=== PATIENT | male | born 1985 ===

== ENCOUNTER → 2017-12-26 | Outpatient (CLI) | payer OTHER | LOC: MHCPAIN 10:08 | DX: G89.29 Other chronic pain (principal); M47.27 Other spondylosis with radiculopathy, lumbosacral region; M53.3 Sacrococcygeal disorders, not elsewhere classified; F17.200 Nicotine dependence, unspecified, uncomplicated | CPT/HCPCS: G0463 ==

== ENCOUNTER → 2018-01-01 | Outpatient (CLI) | payer OTHER | LOC: MHCPAIN 15:43 | DX: M47.27 Other spondylosis with radiculopathy, lumbosacral region (principal); M51.26 Other intervertebral disc displacement, lumbar region | CPT/HCPCS: J1040; Q9967 ==

== ENCOUNTER → 2018-01-23 | Outpatient (CLI) | payer OTHER | LOC: MHCPAIN 10:05 | DX: G89.29 Other chronic pain (principal); M47.817 Spondylosis without myelopathy or radiculopathy, lumbosacral region; M54.16 Radiculopathy, lumbar region | CPT/HCPCS: G0463 ==

== ENCOUNTER → 2018-02-05 | Outpatient (CLI) | payer OTHER | LOC: MHCPAIN 14:50 | DX: M47.817 Spondylosis without myelopathy or radiculopathy, lumbosacral region (principal); M51.37 Other intervertebral disc degeneration, lumbosacral region | CPT/HCPCS: J1040; Q9967 ==

== ENCOUNTER → 2018-03-13 | Outpatient (CLI) | payer OTHER | LOC: MHCPAIN 10:02 | DX: G89.29 Other chronic pain (principal); M47.817 Spondylosis without myelopathy or radiculopathy, lumbosacral region; M54.18 Radiculopathy, sacral and sacrococcygeal region; M53.3 Sacrococcygeal disorders, not elsewhere classified | CPT/HCPCS: G0463 ==

== ENCOUNTER → 2018-04-02 | Outpatient (CLI) | payer OTHER | LOC: MHCPAIN 13:36 | DX: M47.817 Spondylosis without myelopathy or radiculopathy, lumbosacral region (principal); M54.5 Low back pain | CPT/HCPCS: J1040; J2250; J3010; Q9967 ==

== ENCOUNTER → 2018-05-29 | Outpatient (CLI) | payer OTHER | LOC: MHCPAIN 10:59 | DX: G89.29 Other chronic pain (principal); M47.817 Spondylosis without myelopathy or radiculopathy, lumbosacral region; M54.16 Radiculopathy, lumbar region; M53.3 Sacrococcygeal disorders, not elsewhere classified | CPT/HCPCS: G0463 ==

== ENCOUNTER → 2018-11-10 | Outpatient (CLI) | payer OTHER | LOC: MHCPAIN 10:46 | DX: G89.29 Other chronic pain (principal); M47.817 Spondylosis without myelopathy or radiculopathy, lumbosacral region; M54.16 Radiculopathy, lumbar region; M53.3 Sacrococcygeal disorders, not elsewhere classified | CPT/HCPCS: G0463 ==

== ENCOUNTER 2022-10-23 11:32 | Day surgery (SDC) | payer OTHER ==
[~2022-10-23] VITALS: Ht 167.6 cm; Wt 74.5 kg
[2022-10-23 12:03] VITALS: BP 130/84; PULSE 76; TEMP 97.6
[2022-10-23] MEDS ORDERED: ZYRTEC 10MG10 MG PO (12:09)
[2022-10-23] MEDS ORDERED: PROVENTIL0.09 MG/A1 IH (12:10)
[2022-10-23] MEDS ORDERED: NORCO 325 MG-51 TAB PO (14:12)
[2022-10-23 15:15] VITALS: BP 116/94; PULSE 73; TEMP 97.2
[2022-10-23 15:30] VITALS: BP 148/88; PULSE 71
[2022-10-23 15:45] VITALS: BP 132/81; PULSE 71
[2022-10-23 16:00] VITALS: BP 130/77; PULSE 74
--- NOTE | 2022-10-23 16:40 | NUR ---
1515 PT TO [facility] [place] [facility] FROM PACU S/P ROBOTIC LEFT INGUINAL HERNIA REPAIR. 3 TROCAR SITES CLOSED WITH BANDAIDS - CDI. WAS NAUSEOUS IN PACU, MEDICATED, CURRENTLY DENIES COMPLAINT. L&OX4. PLACED ON MONITOR, VSS ON RA RECEIVED REPORT AND ASSUMED CARE OF PT FROM [facility] NO FAMILY AVAILABLE. RIDE HOME, FRIEND ELDON CALLED, HAS ETA OF 30 MIN WHEN READY. 1525 PT MORE AWAKE, PROVIDED JUICE AND MUFFIN PER REQUEST - TOLERATING WELL. 1550 PT HAS REMAINED A&O, NAD, VSS ON RA, TOLERATING PO, IS WITHOUT SIGNIFICANT COMPLAINT, WITH STEADY GAIT THRU OUT [facility], PREPPARING FOR D/C, REPORTING NEW AND INCREASING LLQ ABDOMINAL ACHE - MEDICATED ORDERED. 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 D/C INSTRUCTIONS, ANY FOLLOW UP REVIEWED AND HANDED TO PT. ALL QUESTIONS AND CONCERNS ADDRESSED TO PT SATISFACTION. 1620 TAKEN TO EXIT VIA W/C WITH ALL BELONGINGS AND PAPERWORK IN HAND, ASSISTED INTO PASSENGER SEAT OF POV. FRIEND DON TO DRIVE HOME.
== END 2022-10-23 16:20 | disposition home or self-care (01) ==
LOC: SDCO 11:32
DX: K40.90 Unilateral inguinal hernia, without obstruction or gangrene, not specified as recurrent (principal); K66.0 Peritoneal adhesions (postprocedural) (postinfection)
CPT/HCPCS: C1781; J0690; J1100; J1885; J2405; J2550; J2704; J3010; J7120